=== PATIENT | male | born 1975 | race Caucasian/White ===

== ENCOUNTER 2025-04-30 08:01 | Emergency (ER) | payer BC ==
[2025-04-30] MEDS: Alum Hydrox/Mag Hydrox/Simeth 15 ML, Lidocaine 2% 5 ML PO ONE (09:00)
== END 2025-04-30 12:38 | disposition home or self-care (01) ==
LOC: MW.ED 08:01
DX: R09.A9 Foreign body sensation, other site (principal)
CPT/HCPCS: 70490; 70490-26; 87651; 99284; A9270-GY